=== PATIENT | female | born 1950 | race Caucasian/White ===

== ENCOUNTER → 2016-11-21 | Outpatient (CLI) | payer BC ==
[~2016-11-21] MED LIST: ADVIL200 M3 PO; ALLEGRA180 MG; AMITRYPTYLINE PO; ATIVAN2 MG PO; CYMBALTA PO; FIORINAL 50-321 EACH PO; FIORINAL W/CODE1 CA1; FORTEO2.4 ML IJ; HYDROCODONE-APA1 T42 PO; LORTAB 7.51 TAB 7.5/ PO; NEURONTIN PO; VICODIN 5/1 TAB 5/50 PO; VITAL-D RX TABL1 TAB PO
--- NOTE | ~2016-11-21 | US128 ---
[id number] [address] [address] [id number] O MR#: [id number] Acc #: [id number] NAME: MARCIO GR : 1950 SEX: F STUDY DATE/TIME: 11/21/2016 11:28 UNIT: SGUS ROOM: STUDY DESCRIPTION: US Thyroid Attending Physician: Merry Cortez A.P.R.N. Referring Physician: Merry Cortez A.P.R.N. Ordering Physician: Merry Cortez A.P.R.N. Primary Care Physician: Lawrence Ceja M.D. MEDICAL IMAGING REPORT This report is preliminary unless electronic signature is present. EXAM Thyroid ultrasound 11/21/2016 HISTORY Thyroid nodule followup. COMPARISON Thyroid ultrasound 12/01/2015 FINDINGS The right thyroid lobe measures 2.0 x 1.6 x 4.3 cm. The isthmus measures 2.6 mm thickness. The left thyroid lobe measures 1.2 x 1.5 x 3.8 mm. Hypoechoic solid nodule is seen within the right mid thyroid lobe measuring 1.2 x 1.3 x 1.7 cm. On the previous study it measured approximately 1.7 x 1.8 x 2.1 cm. It measures slightly smaller on today's examination. Additionally, there is a hypoechoic solid-appearing nodule in the posterior right lower thyroid pole, measuring 1.1 x 1.4 x 1.3 cm compared to 1.1 x 0.7 x 0.9 cm currently. It appears slightly larger than on the previous exam. No left thyroid nodules are identified. No suspicious microcalcifications are evident. IMPRESSION 1. Two dominant solid nodules are seen within the right thyroid lobe. The nodule in the mid lobe region measures slightly smaller, in keeping with benign finding. The nodule within the right lower thyroid pole measures a few millimeters larger, but does not meet sonographic criteria to warrant fine-needle aspiration at this time according to the Society of [employer] and Ul[employer]. 2. No new thyroid nodules are seen. Dictated by... Alma Pimentel M.D. THIS IS AN ELECTRONICALLY VERIFIED REPORT Alma Pimentel M.D. at 11/22/2016 6:13 AM [place] TD: 11/21/2016 17:32 JOB #: [id number] MEDICAL IMAGING REPORT Page 1 of 1
== END | disposition home or self-care (01) ==
LOC: SGUS 11:24
DX: E04.0 Nontoxic diffuse goiter (principal); E04.2 Nontoxic multinodular goiter
CPT/HCPCS: 76536

== ENCOUNTER → 2016-12-26 | Outpatient (CLI) | payer BC ==
--- NOTE | ~2016-12-26 | CR172 ---
[facility]. [facility] A Service of [facility] & [facility] RADIOLOGY TEXT RESULTS PATIENT: MARCIO GR LOCATION: [facility] : 54 UNIT #: [id number] AGE: [address]: Jess Jaramillo SEX: F ORDER DR: [id number] [address] [address] [id number] O MR#: [id number] Acc #: [id number] NAME: MARCIO GR : 1950 SEX: F STUDY DATE/TIME: 12/26/2016 11:49 UNIT: [facility] ROOM: STUDY DESCRIPTION: CR Knee 3 Views Lt Attending Physician: Jess Jaramillo A.P.R.N. Referring Physician: Jess Jaramillo A.P.R.N. Ordering Physician: Jess Jaramillo A.P.R.N. Primary Care Physician: Lawrence Ceja M.D. MEDICAL IMAGING REPORT This report is preliminary unless electronic signature is present. EXAM Left knee INDICATION Left knee pain and swelling for 8 months. COMPARISON STUDIES 04/30/2016 FINDINGS AP, lateral and sunrise views of the left knee were obtained. There is mild medial joint compartment narrowing without osteophyte formations. There is a minimal lateral osteophyte formation from the patella. The patellofemoral joint is normal in thickness. IMPRESSION Mild medial joint compartment degenerative changes with minimal spurring from the lateral margin of the patella. Dictated by... Killian Mcallister M.D. THIS IS AN ELECTRONICALLY VERIFIED REPORT Killian Mcallister M.D. at 12/28/2016 8:36 AM Marie TD: 12/27/2016 16:57 JOB #: [id number] MEDICAL IMAGING REPORT Page 1 of 1
--- NOTE | ~2016-12-26 | CR173 ---
[facility] RADIOLOGY TEXT RESULTS PATIENT: MARCIO GR LOCATION: [facility] : 54 UNIT #: [id number] AGE: [address]: Jess Jaramillo SEX: F ORDER DR: [id number] [address] [address] [id number] O MR#: [id number] Acc #: [id number] NAME: MARCIO GR : 1950 SEX: F STUDY DATE/TIME: 12/26/2016 11:43 UNIT: [facility] ROOM: STUDY DESCRIPTION: CR Knee 3 Views Rt Attending Physician: Jess Jaramillo A.P.R.N. Referring Physician: Jess Jaramillo A.P.R.N. Ordering Physician: Jess Jaramillo A.P.R.N. Primary Care Physician: Lawrence Ceja M.D. MEDICAL IMAGING REPORT This report is preliminary unless electronic signature is present. EXAM Right knee HISTORY Right knee swelling and pain for 8 months. COMPARISON STUDIES None. FINDINGS AP, lateral and sunrise views of the right knee were obtained. There is very mild narrowing medial joint compartment with minimal osteophyte formation from the medial tibial plateau and medial femoral condyle. Patellofemoral joint is normal. IMPRESSION Mild degenerative changes in the medial joint compartment, otherwise study is normal. Dictated by... Killian Mcallister M.D. THIS IS AN ELECTRONICALLY VERIFIED REPORT Killian Mcallister M.D. at 12/28/2016 8:36 AM FEL/pcl TD: 12/27/2016 17:00 JOB #: [id number] [facility] RADIOLOGY TEXT RESULTS PATIENT: MARCIO GR LOCATION: [facility] : 54 UNIT #: [id number] AGE: [address]: Jess Jaramillo SEX: F ORDER DR: MEDICAL IMAGING REPORT Page 1 of 1
== END | disposition home or self-care (01) ==
LOC: SRAD 11:28
DX: M17.0 Bilateral primary osteoarthritis of knee (principal)
CPT/HCPCS: 73562